=== PATIENT | female | born 1965 | race Caucasian/White ===

== ENCOUNTER 2019-04-14 13:30 | Emergency (ER) | payer MEDICARE, MEDICAID ==
[~2019-04-14 13:30] MED LIST: AUGMENTIN875 MG OR; BACTRIM DS1 TAB PO; BONIVA150 MG OR; CALCIUM600 M1 OR; CHILD ASA81 MG OR; CLARITIN10 MG PO; FISH OIL1000 MG PO; FLEXERIL OR; FLEXERIL PO; FOSAMAX35 MG; LORTAB 10-325 M1 TAB PO; METO50TA52 PO; MULTI VIT PO; NAPROSYN500 MG PO; NEXIUM20 M1 OR; NORCO1 TA1 PO; PERCOCET 5/325M1 TAB OR; TRI; TRICOR145 MG PO; ULTRAM50 MG OR; VITAMIN B-12500 MCG PO; ZETIA10 MG PO
[2019-04-14] MEDS ORDERED: GABAPENTIN100 MG PO (13:45)
[2019-04-14] MEDS ORDERED: TIZANIDINE HYDRO2 M1 PO (13:46)
[2019-04-14] MEDS ORDERED: KEFLEX500 M1 PO (14:52)
[2019-04-14] MEDS ORDERED: MEDDOSEPAK PO (14:52)
[2019-04-14 14:58] VITALS: BP 169/80
== END 2019-04-14 14:55 | disposition home or self-care (01) ==
LOC: ED 13:30
DX: S50.361A Insect bite (nonvenomous) of right elbow, initial encounter (principal); L03.113 Cellulitis of right upper limb; I10 Essential (primary) hypertension; F17.210 Nicotine dependence, cigarettes, uncomplicated; W57.XXXA Bitten or stung by nonvenomous insect and other nonvenomous arthropods, initial encounter